=== PATIENT | female | born 1950 | race Caucasian/White ===

== ENCOUNTER 2023-07-26 15:15 | Emergency (ER) | payer BC ==
[~2023-07-26] VITALS: Ht 154.9 cm; Wt 56.7 kg
[2023-07-26 15:22] VITALS: BP_SYST 168; PULSE 85; RESP 18; TEMP 97.4; O2SAT 98
[2023-07-26] MEDS: METOCLOPRAMIDE HCL 10 MG/2 ML VIAL IVP ONE (16:04)
[2023-07-26 16:07] LABS: BASOPHILS # (AUTO) 0.1 K/uL (0.0-0.2); BASOPHILS % (AUTO) 1.2 % (0.0-2.0); EOSINOPHILS # (AUTO) 0.2 K/uL (0.0-0.4); EOSINOPHILS % (AUTO) 2.8 % (0.0-4.0); HEMOGLOBIN 14.2 g/dL (12.0-16.0); LYMPHOCYTES # (AUTO) 1.4 K/uL (1.0-5.5); LYMPHOCYTES % (AUTO) 22.1 % (20.5-51.5); MEAN CORPUSCULAR HEMOGLOBIN 31 pg (27-31); MEAN CORPUSCULAR HGB CONC 35 % (32-36); MEAN CORPUSCULAR VOLUME 89 fL (79.0-98.0); MONOCYTES # (AUTO) 0.5 K/uL (0.0-1.0); MONOCYTES % (AUTO) 8.5 % (1.7-9.3); NEUTROPHILS # (AUTO) 4.1 K/uL (1.8-7.7); NEUTROPHILS % (AUTO) 65.4 % (40.0-70.0); PLATELET COUNT (AUTO) 206 K/uL (130-430); RED BLOOD CELL COUNT(AUTO) 4.62 MIL/uL (4.2-6.2); RED CELL DISTRIBUTION WIDTH 12.4 % (9.0-15.0); WHITE BLOOD COUNT (AUTO) 6.3 K/uL (4.8-10.8)
[2023-07-26] MEDS: DIPHENHYDRAMINE INJ 50 MG/ML VIAL IVP ONE (16:14)
[2023-07-26 16:16] LABS: CALCIUM 9.4 mg/dL (8.4-11.0); CREATININE 0.71 mg/dL (0.55-1.30); POTASSIUM 3.5 mmol/L (3.5-5.1)
[2023-07-26 16:35] LABS: ERYTHROCYTE SEDIMENTATION RATE 13 MM/HR (0-20)
[2023-07-26] MEDS ORDERED: HYDR-3917 PO (16:43)
[2023-07-26] MEDS ORDERED: IBUP-1969 PO (16:43)
[2023-07-26 17:03] VITALS: BP_SYST 138; PULSE 66; RESP 24; TEMP 97.6; O2SAT 99
[2023-07-26 17:11] LABS: PROTHROMBIN TIME 10.3 SECS (9.5-12.5)
== END 2023-07-26 17:20 | disposition home or self-care (01) ==
LOC: SED 15:15
DX: R51.9 Headache, unspecified (principal); I10 Essential (primary) hypertension; Z79.899 Other long term (current) drug therapy
CPT/HCPCS: 99285; 96374; 70450; 96375; 80048; 85025; 85610; 85651; 85730; 36415; 93005; 82397; J1200; J2765